=== PATIENT | female | born 1960 | race Caucasian/White ===

== ENCOUNTER 2025-04-04 15:08 | Emergency (ER) | payer OTHER, SELFPAY ==
[2025-04-04 15:12] VITALS: BP 179/105; PULSE 75; TEMP 36.8; O2SAT 91
--- NOTE | 2025-04-04 15:17 | ECG_ITS ---
[facility] Test Date: 2025-04-04 Pat Name: MARYANN BEE Department: Room: Gender: Female Room Server: : 1960 Requested By: Lauren Blackmon Order Number: [id number] Reading MD: Measurements Intervals [place] Rate: 72 P: 46 AK: 132 QRS: 58 QRSD: 74 T: 70 QT: 389 QTc: 428 Interpretive Statements SINUS RHYTHM INTERPRETATION BASED ON A DEFAULT AGE OF 40 YEARS No previous ECG available for comparison [email or web address]
--- NOTE | 2025-04-04 15:27 | XR_ITS ---
WS: [id number] XR chest 1V portable [id number] REASON FOR EXAM: short of breath FINDINGS: Prominent ectasia and tortuosity of the ascending aorta. Normal arch and descending aorta. Normal heart size. Calcified granulomas disease bilaterally. Flattening of the hemidiaphragms. No acute pulmonary parenchymal or pleural abnormality. Mild levoscoliosis with moderate degenerative spondylosis of the thoracic spine. XR/XR chest 1V portable [id number] IMPRESSION: Prominent ascending aorta. Mild hyperexpansion with no acute abnormality.
--- OUTSIDE RECORDS SUMMARY | 2025-04-04 15:49 | XMS_ITS | Clinical Summary ---
Author Organization [facility] [employer] Address [address] 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
--- OUTSIDE RECORDS SUMMARY | 2025-04-04 15:49 | XMS_ITS | Encounter Summary ---
Author Organization [employer] [facility] Address [address] [place] [address] Care Team Providers Care Tab Cutter Name Role Phone Unavailable Primary Care Provider Unavailabl e Encounter Details Date Type Department Care Team (Late st Contact Info) Description 11/30/1997 Outpatient Historical [facility] Maria Elena Robertson MD [address] [place] [id number] Other specified aftercare following surgery (Primary Dx) Social History Tobacco Use Types Packs/Day Years Used Date Smoking Tobacco: Never Assessed Comments Unknown Sex and Gender Information Value Date Recorded Sex Assigned at Not on file 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
--- OUTSIDE RECORDS SUMMARY | 2025-04-04 15:49 | XMS_ITS | Encounter Summary ---
Author Organization [facility] Address [address] [place] [address] Care Team Providers Care Workforce Services Representative Name Role Phone Unavailable Primary Care Provider Unavailabl e Encounter Details Date Type Department Care Team (Latest Contact Info) Description 12/12/1997 Outpatient Historical [facility] General and Trauma Surgery-[address] [place] [phone] Kirk Levi MD NO ADDRESS ON FILE Concussion-brief coma (Primary Dx); Open wound of scalp; Open wound of cheek Social History Tobacco Use Types Packs/Day Years Used Date Smoking Tobacco: Never Assessed Comments Unknown Sex and Gender Information Value Date Recorded Sex Assigned at Not on file 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
--- OUTSIDE RECORDS SUMMARY | 2025-04-04 15:49 | XMS_ITS | Encounter Summary ---
Author Organization [employer] [facility] Address [address] [place] [address] Care Team Providers Care Online Communications Specialist Name Role Phone Unavailable Primary Care Provider Unavailabl e Encounter Details Date Type Department Care Team (Late st Contact Info) Description 12/07/1997 Outpatient Historical [facility] Maria Elena Robertson MD [address] [place] [phone] Other specified aftercare following surgery (Primary Dx) Social History Tobacco Use Types Packs/Day Years Used Date Smoking Tobacco: Never Assessed Comments Unknown Sex and Gender Information Value Date Recorded Sex Assigned at Not on file 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
--- OUTSIDE RECORDS SUMMARY | 2025-04-04 15:49 | XMS_ITS | Encounter Summary ---
Author Organization [employer] [facility] Address [address] [place] [address] Care Team Providers Care Gel Coat Sprayer Name Role Phone Unavailable Primary Care Provider Unavailabl e Encounter Details Date Type Department Care Team (Late st Contact Info) Description 01/11/1998 Outpatient Historical [facility] Maria Elena Robertson MD [address] [place] [phone] Other specified aftercare following surgery (Primary Dx) Social History Tobacco Use Types Packs/Day Years Used Date Smoking Tobacco: Never Assessed Comments Unknown Sex and Gender Information Value Date Recorded Sex Assigned at Not on file 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
--- OUTSIDE RECORDS SUMMARY | 2025-04-04 15:49 | XMS_ITS | Encounter Summary ---
Author Organization [employer] [facility] Address [address] [place] [address] Care Team Providers Care Shift Coordinator Name Role Phone Unavailable Primary Care Provider Unavailabl e Encounter Details Date Type Department Care Team (Late st Contact Info) Description 04/12/1998 Outpatient Historical HIS [facility] [place] [facility] Maria Elena Robertson MD [address] [place] [phone] Other specified aftercare following surgery (Primary Dx) Social History Tobacco Use Types Packs/Day Years Used Date Smoking Tobacco: Never Assessed Comments Unknown Sex and Gender Information Value Date Recorded Sex Assigned at Not on file 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
[2025-04-04 16:09] VITALS: PULSE 100; RESP 17; O2SAT 93
--- NOTE | 2025-04-04 16:19 | W.ED.SOB ---
HPI - SOB/Dyspnea General: Chief Complaint: Shortness of Breath/Dyspnea Stated Complaint: low O2 and dizzy Time Seen by Provider: 04/04/25 16:06 History of Present Illness: HPI Narrative: Patient is a 64-year-old female with history of tobacco abuse, hypertension, hyperlipidemia that presents to the emergency room due to wheezing, cough, cold. Patient had symptoms on Wednesday, Wednesday 5 days ago. She stated she had a sick contact with her nephew on . She feels like it is difficult to take a deep breath. She has a nonproductive cough. Her chest feels tighter than usual. She is wheezing. Denies any upper airway issues. No fevers. She did attempt to [facility]. Since admission to the ED her oxygen saturation has been 91-95%. She is able to speak full sentences. She has not had any inhalers today, and does not have any at home. She does not take any medications for COPD/asthma/wheezing. She has no nausea, no vomiting, no chest discomfort. Associated symptoms: Deny abdominal pain, chest pain, fever(s), hemoptysis, nausea, palpitations, polydipsia, polyuria or syncope Related Data Home Medications ?Medication ?Instructions ?Recorded ?Confirmed cholecalciferol (vitamin D3) 50 50 mcg PO DAILY 04/04/25 04/04/25 mcg (2,000 unit) tablet (Vitamin D3) dnuntprtdlrk-hzisugxw-rkhxi acid 1 cap PO DAILY 04/04/25 04/04/25 400 mcg-vitamin K 80 mcg capsule (Multi For Her 50 Plus) propranolol 10 mg tablet 10 mg PO BID 04/04/25 04/04/25 Previous Rx's ?Medication ?Instructions ?Recorded doxycycline hyclate 100 mg capsule 100 mg PO BID 10 days #20 caps 04/04/25 methylprednisolone 4 mg tablets in See Rx Instructions PO .COMPLEX 04/04/25 a dose pack (Medrol (Oracio)) #21 ea Allergies Allergy/AdvReac Type Severity Reaction Status Date / Time No Known Allergies Allergy Verified 04/04/25 15:22 Review of Systems Const: Denies: fever(s), change in weight or fatigue Eyes: Denies: change in vision, blurry vision, blind spots, photophobia, eye discomfort, seeing flashes or other (Glaucoma) ENMT: Denies: odynophagia, hoarseness, change in hearing, tinnitus or sinus pain Card: Denies: chest pain, palpitations, syncope or other (Calf cramps) Resp: Reports: dyspnea and non-productive cough; Denies: wheezing or hemoptysis GI: Denies: abdominal pain, nausea, heartburn, diarrhea, constipation or hematochezia : Denies: urinary frequency or urinary incontinence Musc: Denies: neck pain, muscle weakness or other (Muscle pain) Skin/Breast: Denies: rash, new lesions or breast mass Neuro: Denies: headache(s), numbness in extremities, weakness in extremities, difficulty walking, Slurred speech present or seizure-like activity Psych: Denies: depression, irritability, memory loss or difficulty concentrating Endo: Denies: polyuria, polydipsia, excessive sweating or change in body appearance Dustin/Lymph: Denies: easy bruising, easy bleeding or enlarged lymph nodes PFSH ED PFSH: Social History (System 03/06/25 @ 15:46 by Lotus Saunders) Smoking and tobacco/nicotine status: current every day tobacco/nicotine user Physical Exam Const: COMMON NORMALS: no acute distress, average body habitus and patient oriented x3 GENERAL APPEARANCE: cooperative HENMT: COMMON NORMALS: normocephalic, atraumatic, TM's normal bilaterally and oropharynx normal HEAD & SCALP: normocephalic and atraumatic FACE & SINUS: normal facial exam, sinuses nontender and face symmetric TYMPANIC MEMBRANE: TM's normal bilaterally MOUTH: Normal oral and palatal mucosa present, lip normal and tongue normal Eye: COMMON NORMALS: Equal, round and reactive pupils present (Right only, left is nonreactive and chronic), EOMs intact bilaterally and conjunctivae normal CONJUNCTIVA: Yes conjunctivae normal PUPIL: Yes Equal, round and reactive pupils present (Right only, left is nonreactive and chronic) Lymph: LYMPHATIC: no lymphadenopathy noted Chest: COMMONS NORMALS: normal inspection of the chest and normal palpation of entire chest wall Resp: COMMON NORMALS: normal respiratory effort and No retractions EFFORT & INSPECTION: Yes able to speak in complete sentences AUSCULTATION: wheezes expiratory wheezes, inspiratory wheezes, lower bilaterally and upper bilaterally Cardio: COMMON NORMALS: regular rate and regular rhythm RATE: regular rate RHYTHM: regular rhythm GI: COMMON NORMALS: Normal to inspection, nondistended, normoactive bowel sounds present and Soft to palpation PALPATION: Yes Soft to palpation : COMMON NORMALS: Yes no CVA tenderness BLADDER/KIDNEY EXAM: Yes no CVA tenderness Back/Pelvis: COMMON NORMALS: no CVA tenderness Extremity: COMMON NORMALS: normal to inspection, full ROM and capillary refill normal Neuro: COMMON NORMALS: patient oriented x3 Psych: COMMON NORMALS: mental status grossly normal, Normal thought process present and cooperative THOUGHT PROCESS: Normal thought process present Course Vital Signs: Vital signs: Vital Signs Temperature 98.2 F 04/04/25 15:12 Pulse Rate 100 04/04/25 16:09 Respiratory Rate 17 04/04/25 16:09 Blood Pressure 179/105 04/04/25 15:12 Pulse Oximetry 93 04/04/25 16:09 Oxygen Delivery Me thod Room Air 04/04/25 16:09 MDM - SOB/Dyspnea Medical Decision Making 64-year-old female presents to the ED with shortness of breath, and reportedly low oxygen saturation. Oxygen saturation has been stable since admission to the ED. Blood pressure is elevated. Will give labetalol x 1 for blood pressure control, have patient return to her doctor. I did discuss her prominent aescending aorta with patient, and patient assures me [facility] On physical examination, she did have wheezing, audible, and her chest with speaking full sentences. Given oxygen saturation, there is no reason to admit her at this time. Solu-Medrol will be given x 1, RT to instruct patient on inhaler since she has never had before, and prophylactic doxycycline given her tobacco abuse history with concern of secondary infection. No reason to obtain COVID/flu since this has occurred for 5 days. Medical Records I reviewed the patient's medical records. Lab Data Labs/Radiology: Radiology Impressions Chest X-Ray 04/04/25 15:27 IMPRESSION: Prominent ascending aorta. Mild hyperexpansion with no acute abnormality. XR interpretation done by ED provider, pending radiology final review Discharge Plan Discharge Patient Disposition: Home Clinical Impression: Viral respiratory illness Asthma with exacerbation Qualifiers: Asthma severity: mild Asthma persistence: persistent Qualified Code(s): J45.31 - Mild persistent asthma with (acute) exacerbation Condition: Stable Prescriptions: New doxycycline hyclate 100 mg capsule 100 mg PO BID 10 Days Qty: 20 0RF methylprednisolone [Medrol (Oracio)] 4 mg tablets,dose pack See Rx Instructions .ROUTE .COMPLEX Qty: 21 0RF Rx Instructions: for 6 days No Action propranolol 10 mg Tablet 10 mg PO BID cholecalciferol (vitamin D3) [Vitamin D3] 50 mcg (2,000 unit) Tablet 50 mcg PO DAILY Multi For Her 50 Plus 400-80 mcg Capsule 1 cap PO DAILY Discharge Orders: Discharge ED (Routine); Ordered 04/04/25 Ordered By: Lauren Blackmon Referrals: Madeleine Dumont FNP [Primary Care Provider, Nurse Practitioner] Discharge Diet: Low Salt Discharge Activity: Resume usual activity Patient Instructions: Asthma Exacerbation - Adult, Patient Portal & Dennise Instructions Activity Restrictions/Additional Instructions: - Blood pressure was higher in ER. Talk to your doctor about modifications of your blood pressure medications. -Low-salt diet is best to manage her blood pressure naturally -With your shortness of breath you have 2 medications at the pharmacy: Medrol Dosepak, use as directed; doxycycline taken twice daily. Make sure your antibiotic/doxycycline is taken with food or you will have nausea. This is not an allergy, it is a side effect if you do not utilize food with your medication. This is a preventative for secondary infection due to your tobacco history. Your illness is most likely a viral illness, however with possibility of COPD, secondary organisms are of concern - With an antibiotic, you should take probiotic or eat active culture yogurt to avoid infectious diarrhea. -Respiratory therapist has instructed you on your inhaler. Use as directed. Utilizing this more than every 3 hours, will need to be visit to the ED or your primary doctor. Your primary doctor may elect to put you on a long-acting inhaler as well that will control your symptoms better. - Call your doctor at the OR for follow-up. You indicated the OR has already checked your aorta, as we discussed your abnormality on your chest x-ray with your aorta. This may need to be addressed again given your higher blood pressure. - Please return to ED if you do have worsening shortness of breath, fever greater than 100.4 ?F - Thank you for your service Thank you for choosing [facility] for your healthcare needs today. You have been screened and evaluated and felt safe for discharge. Health conditions do change or evolve sometimes and as such it is important that you follow up with your Primary Doctor to be re checked, 3-5 days is a general good time frame for follow up. You are always welcome to return to the ED for re assessment if your symptoms are worsening or you have new concerns Print Language: Barbadian Coding Level of Care Code ED Thermoscrew Operator for Emmie Stratton
[2025-04-04] MEDS: labetalol 5 mg/mL SDV 20mL 20 MG IVP (16:25)
[2025-04-04] MEDS: methylPREDNISolone sod succ 125 mg/2 mL INJ 80 MG IVP (16:25)
[2025-04-04] MEDS: albuterol 8 gm MDI 2 PUFF INHALATION (17:06)
[2025-04-04 17:10] VITALS: PULSE 89; RESP 20; O2SAT 94
== END 2025-04-04 17:54 | disposition home or self-care (01) ==
PROVIDERS: Emergency Provider Physician Assistant; PCP Nurse Practitioner
DX: J98.8 Other specified respiratory disorders (principal); J45.31 Mild persistent asthma with (acute) exacerbation; Z72.0 Tobacco use; I10 Essential (primary) hypertension; E78.5 Hyperlipidemia, unspecified
CPT/HCPCS: 71045; 93005; 94640; 96374; 96375; 99285; J2919; J3490; J3535